=== PATIENT | female | born 2000 | race African-American/Black ===

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

== ENCOUNTER 2021-04-23 15:33 | Emergency (ER) | payer MEDICAID ==
[~2021-04-23] VITALS: Ht 160 cm; Wt 61.4 kg
[~2021-04-23 15:33] MED LIST changes: +FLEXERIL 1010 MG/TAB PO
[2021-04-23 15:47] VITALS: TEMP 100.7
[2021-04-23] MEDS ORDERED: DOXYCYCLINE HY100 MG PO ×2 (21:03→23:20)
[2021-04-23 21:35] VITALS: BP 115/68; PULSE 84
== END 2021-04-23 21:50 | disposition home or self-care (01) ==
LOC: COL.ER 15:33
DX: L02.415 Cutaneous abscess of right lower limb (principal); F17.290 Nicotine dependence, other tobacco product, uncomplicated; Z20.822 Contact with and (suspected) exposure to COVID-19

== ENCOUNTER 2022-01-03 17:42 | Emergency (ER) | payer MEDICAID ==
[~2022-01-03] VITALS: Ht 157.5 cm; Wt 34.9 kg
[~2022-01-03 17:42] MED LIST changes: +DOXYCYCLINE HY100 MG PO
[2022-01-03 18:05] VITALS: BP 119/78; TEMP 98.7
[2022-01-03 21:37] LABS: COLLECTION METHOD CLEAN CATCH
[2022-01-03 21:51] LABS: MUCOUS Present (NOT PRESENT); URINE BACTERIA Many /hpf (NONE SEEN); URINE RBC 20-50 /hpf (0-2)
[2022-01-03 21:52] LABS: PH 6.5 (5.0-8.5); URINE APPEARANCE Cloudy (CLEAR/HAZY); URINE BLOOD 3+ (NEGATIVE); URINE COLOR Yellow (YELLOW); URINE GLUCOSE Negative (NEGATIVE); URINE KETONE TRACE (NEGATIVE); URINE NITRATE Positive (NEGATIVE); URINE PROTEIN(semi-quant) TRACE (NEGATIVE); URINE UROBILINOGEN 0.2 E.U/dL (0.2-1.0)
[2022-01-03 21:57] LABS: TRICYCLIC ANTIDEPRESS URINE NEGATIVE
[2022-01-03] MEDS ORDERED: OMNICEF 300MG300 MG PO (22:07)
[2022-01-03] MEDS ORDERED: DULCOLAX STOOL100 MG PO (22:08)
[2022-01-03 22:24] VITALS: PULSE 75
[2022-01-04] MEDS ORDERED: ZITHROMAX 250M250 MG PO (02:21)
== END 2022-01-03 22:24 | disposition home or self-care (01) ==
LOC: COL.ER 17:42
PROVIDERS: Nurse Practitioner Primary Care
DX: N39.0 Urinary tract infection, site not specified (principal); K59.00 Constipation, unspecified; Z28.310 Unvaccinated for COVID-19
CPT/HCPCS: J0696